=== PATIENT | male | born 2000 | race Asian ===

== ENCOUNTER 2024-09-23 16:14 | Emergency (ER) | payer SELFPAY ==
[~2024-09-23] VITALS: Ht 172.7 cm; Wt 63.6 kg
[2024-09-23 16:30] VITALS: TEMP 98.6
[2024-09-23 17:13] LABS: COVID AG,FIA SOURCE NASAL SWAB
[2024-09-23 17:37] LABS: INFLUENZA TYPE B NEGATIVE FOR TYPE B (NEGATIVE); SARS-COV2 (COVID) ANTIGEN,FIA Negative (Negative)
[2024-09-23 17:47] LABS: INFLUENZA TYPE A POSITIVE FOR TYPE A (NEGATIVE)
[2024-09-23 18:30] VITALS: BP 115/64; PULSE 80; RESP 16; O2SAT 100
== END 2024-09-23 19:35 | disposition left against medical advice (07) ==
LOC: EMS 16:14
DX: J11.1 Influenza due to unidentified influenza virus with other respiratory manifestations (principal); R09.89 Other specified symptoms and signs involving the circulatory and respiratory systems; Z20.822 Contact with and (suspected) exposure to COVID-19
CPT/HCPCS: 87804; 99283